=== PATIENT | male | born 1980 | race Caucasian/White ===

== ENCOUNTER 2018-04-19 15:38 | Emergency (ER) | payer OTHER, SELFPAY ==
[2018-04-19 16:04] VITALS: BP 154/76; PULSE 75; RESP 15; TEMP 37.1; O2SAT 96; BMI 27.1
--- NOTE | 2018-04-19 16:53 | ED.WOUNDLAC ---
HPI - Wound/Laceration <Sharla Rawls PA-C - Last Filed: 04/19/18 21:56> General Chief Complaint: Wound/Laceration Stated Complaint: cut left hand Time Seen by Provider: 04/19/18 16:36 Source: patient Mode of arrival: ambulatory Limitations: no limitations History of Present Illness HPI narrative: This 37-year-old male comes to ED secondary to left palm laceration. He states he was pulling up some ismael using a pry bar at home when his hand slipped and was cut on the bar. He denies any other injury. He states that he isn't having any difficulty using the hand at all or fingers. He denies any weakness or paresthesia in the hand or fingers. He rinsed out the wound while at home. He does not remember last tetanus vaccine Review of Systems <Sharla Rawls PA-C - Last Filed: 04/19/18 21:56> Review of Systems All systems reviewed & are unremarkable except as noted in HPI and below PFSH <SD Coto Last Filed: 04/19/18 21:56> Comment: Occasional ETOH Exam <SD Coto Last Filed: 04/19/18 21:56> Narrative Exam Narrative: GENERAL APPEARANCE: Patient sitting comfortably, in no distress. LUNGS: Clear to auscultation bilaterally. HEART: Rate and rhythm regular without murmur, normal S1 and S2, no S3 or S4. DERMATOLOGIC: Left palm thenar eminence there is a 2.3 cm laceration which appears to be 3-4 mm deep maximal, the top of the subcu fatty tissue is visible. Not actively bleeding. Gap is maximum 2 mm (macerated at the medial border, otherwise clean) MUSCULOSKELETAL: Full range of motion of the left hand and fingers as well as the wrist without tenderness. [employer] Super[employer] strength 5/5 NEUROVASCULAR: Left hand fingers are warm and pink, wrist pulses intact, sensation grossly intact Initial Vital Signs Initial Vital Signs: Vital Signs Temperature 98.7 F 04/19/18 16:04 Pulse Rate 75 04/19/18 16:04 Respiratory Rate 15 04/19/18 16:04 Blood Pressure 154/76 H 04/19/18 16:04 Pulse Oximetry 96 04/19/18 16:04 <Alejandro Newton DO - Last Filed: 04/20/18 07:14> Initial Vital Signs Initial Vital Signs: Vital Signs Temperature 98.7 F 04/19/18 16:04 Pulse Rate 75 04/19/18 16:04 Respiratory Rate 15 04/19/18 16:04 Blood Pressure 154/76 H 04/19/18 16:04 Pulse Oximetry 96 04/19/18 16:04 Procedures <Sharla Rawls PA-C - Last Filed: 04/19/18 21:56> Laceration Repair Laceration 1: Site: hand Side (If applicable): left Size (cm): 2.3 Description: linear and clean Depth: simple, single layer Local Anesthetic: lidocaine 1% and with epi Amount of anesthesia used (mL): 3 Pre-repair: wound explored, irrigated extensively and deep structures intact Skin layer closed with: nylon Size (cm): 4-0 Number of sutures: 5 Technique: simple, interrupted Course <SD Coto Last Filed: 04/19/18 21:56> Orders Ordered: Discontinued Medications Diphtheria/Tetanus/Acell Pertussis (Adacel) 0.5 ml IM .ONCE ONE Stop: 04/19/18 17:14 Last Admin: 04/19/18 17:14 Dose: 0.5 ml Ibuprofen (Advil) 800 mg PO NOW ONE Stop: 04/19/18 17:10 Last Admin: 04/19/18 17:14 Dose: 800 mg Vital Signs - 8 hr 04/19/18 16:04 04/19/18 18:22 Temperature 98.7 F 98.0 F Pulse Rate 75 62 Respiratory Rate 15 16 Blood Pressure 154/76 H Blood Pressure [Right Arm] 136/79 Pulse Oximetry 96 99 <Alejandro Newton DO - Last Filed: 04/20/18 07:14> Orders Ordered: Discontinued Medications Diphtheria/Tetanus/Acell Pertussis (Adacel) 0.5 ml IM .ONCE ONE Stop: 04/19/18 17:14 Last Admin: 04/19/18 17:14 Dose: 0.5 ml Ibuprofen (Advil) 800 mg PO NOW ONE Stop: 04/19/18 17:10 Last Admin: 04/19/18 17:14 Dose: 800 mg Vital Signs - 8 hr 04/19/18 16:04 04/19/18 18:22 Temperature 98.7 F 98.0 F Pulse Rate 75 62 Respiratory Rate 15 16 Blood Pressure 154/76 H Blood Pressure [Right Arm] 136/79 Pulse Oximetry 96 99 Discharge Plan Departure Patient Disposition: Home Clinical Impression: Laceration Discharge Date/Time: 04/19/18 18:43 Interventions: ED Discharge Assessment Last Done: 04/19/18 18:42 Instructions: DI for Laceration Repair Activity Restrictions/Additional Instructions: Please return or see your PCP as we talked about if signs of infection such as redness, increasing swelling, draining pus, or fever. Otherwise, please avoid pressure on the sutures. You can rinse quickly and pat dry but do not immerse in liquid. Have the sutures removed in 7-10 days (you can do this at your PCP office, or here or walk-in clinic if needed). Referrals: Lucia Chapin MD [Primary Care Provider] - <Alejandro Newton DO - Last Filed: 04/20/18 07:14> Cosign ED Attending Ta Attestation: I was available for consultation during this patient's emergency department encounter
[2018-04-19] MEDS: IBUPROFEN 400 MG TABLET 800 MG PO (17:14)
[2018-04-19] MEDS: TET,DIPH,PERTUSS(ACELL),VAC/PF 0.5 ML SYRINGE IM (17:14)
[2018-04-19 18:22] VITALS: BP 136/79; PULSE 62; RESP 16; TEMP 36.7; O2SAT 99
== END 2018-04-19 18:43 | disposition home or self-care (01) ==
PROVIDERS: Emergency Provider Internal Medicine; PCP Family Medicine
DX: S61.412A Laceration without foreign body of left hand, initial encounter (principal); W26.8XXA Contact with other sharp object(s), not elsewhere classified, initial encounter
CPT/HCPCS: 12001; 90471; 99283; 90715